=== PATIENT | male | born 1945 | race African-American/Black ===

== ENCOUNTER 2024-10-18 00:03 | Emergency (ER) | payer OTHER ==
[2024-10-18] MEDS ORDERED: FENTANYL CITR 100 MCG/2 ML ONE ×2 (01:25→05:06)
[2024-10-18] MEDS ORDERED: ONDANSETRON 4 MG/2 ML VIAL ONE ×2 (01:26→05:06)
[2024-10-18] MEDS ORDERED: NA CHLORIDE 0.9% 1,000 ML ONE (01:26)
[2024-10-18 01:41] LABS: Absolute Basophils 0.1 K/uL (0-0.5); Absolute Eosinophils 0.1 K/uL (0-0.5); Absolute Lymphocytes (CBC) 1.8 K/uL (0.7-4.9); Absolute Monocytes 0.7 K/uL (0.1-1.3); Basophils % 0.9 % (0-1.3); Eosinophils % 1.6 % (0-4.4); Hematocrit 29.7 % (39.6-49.0); Hemoglobin 9.2 g/dL (13.6-17.9); Lymphocytes % 27.1 % (15.3-44.8); MCH 22.3 pg (27.0-35.0); MCHC 31.1 g/dL (32.0-36.0); MCV 71.6 fL (80-100); MPV 7.2 fL (7.6-11.3); Neutrophils % 60.4 % (41.7-73.7); Nucleated Red Blood Cells % 0.1 % (0-0); Platelets 273 thou/uL (152-406); RBC Red Blood Cell Count 4.15 M/uL (4.33-5.43); Red Cell Distribution Width 20.1 % (12.1-15.2)
[2024-10-18 02:16] LABS: Albumin 2.6 g/dL (3.4-5.0); Albumin/Globulin Ratio 0.7 (1.1-1.8); Alkaline Phosphatase 95 U/L (45-117); Anion Gap 5.7 mEq/L (5.0-15.0); BUN Blood Urea Nitrogen 6 mg/dL (7-18); Bicarbonate 33 mEq/L (21-32); Bilirubin Total 0.3 mg/dL (0.2-1.0); Globulin 3.5 g/dL (2.3-3.5); Glomerular Filtration Rate 88 ml/min (=/>90); Glucose Level 140 mg/dL (74-106); Lipase 16 U/L (13-75); Potassium 2.7 mEq/L (3.5-5.1); Protein, Total 6.1 g/dL (6.4-8.2); Sodium Level 143 mEq/L (136-145)
[2024-10-18 02:17] LABS: ALT/SGPT < 14 U/L (16-61); AST/SGOT < 10 U/L (15-37); Bilirubin Direct < 0.2 mg/dL (0-0.2); Bilirubin Indirect, Calculated 0.1 mg/dL (0.2-0.8)
[2024-10-18 02:32] LABS: Specific Gravity 1.014 (1.005-1.030); Sqamous Epithelial <5 /HPF (None Seen); Urine Bacteria None Seen /HPF (<20); Urine Bilirubin NEGATIVE (Negative); Urine Blood Negative (Negative); Urine Clarity Turbid (Clear); Urine Color Colorless (Yellow); Urine Crystals Unidentified Few /HPF (None Seen); Urine Culture Reflex Order REFLEXED; Urine Glucose NEGATIVE (Negative); Urine Ketones 1+ (Negative); Urine Microscopic Reflex YN ORDER UMIC; Urine Mucus Slight /HPF (None Seen); Urine Nitrite NEGATIVE (Negative); Urine Protein NEGATIVE (Negative); Urine RBC <5 /HPF (None Seen); Urine Urobilinogen Normal (Normal); Urine WBC 20-50 /HPF (<5)
--- NOTE | 2024-10-18 03:26 | RAD REPORT ---
EXAMINATION: CT HEAD AND CERVICAL SPINE WITHOUT CONTRAST INDICATION: Male, 78 years old, HEADACHE; fall COMPARISON(S): CT chest performed concurrently TECHNIQUE: CT acquisition of the head without contrast. CT acquisition of the cervical spine without contrast. Coronal and sagittal reformats provided. This exam was performed according to departmental dose-optimization program which includes automated exposure control, adjustment of the m A and/or kV according to patient size, and/or use of iterative reconstruction technique. FINDINGS: SUPPORT DEVICES: None. HEAD: Brain: No evidence of intracranial hemorrhage, mass effect, or midline shift. Moderate cerebral white matter hypodensity with parenchymal volume loss most likely due to chronic microvascular ischemic changes. Left frontal and right parietal encephalomalacia. Hyperdense, partially calcified 1.3 cm ext ra-axial right frontal mass. CSF Spaces: Moderate symmetric enlargement of the ventricles and sulci. Osseous: No acute fracture. Soft tissue: No evidence of scalp or soft tissue injury. Other: The imaged facial bones are intact. Left lens replacement. Mild paranasal sinus disease is pre sent. CERVICAL SPINE: Morphology: Normal vertebral body heights. No identified fracture. Alignment: No traumatic listhesis. Straightening of normal cervical lordosis. Craniocervical Junction: Intact with degenerative change. Disc Levels: Mild to moderate multilevel spondylosis. Other: No acute finding of the neck soft tissues or imaged upper chest. IMPRESSION: 1. No acute intracranial abnormality. 2. No acute cervical osseous abnormality. 3. 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 Right frontal extra-axial 1.3 cm mass appears most consistent with a meningioma, consider further outpatient workup. Mild to moderate cervical spondylosis. Electronically signed by: Manpreet Vaughn MD 10/18/2024 03:21 AM [facility] Due to temporary technical issues with the PACS/[employer] reporting system, reports are being kaci d by the in-house radiologist without review as a courtesy to ensure prompt reporting the interpreting radiologist is fully responsible for the content of the report. Transcribed Date/Time: 10/18/2024 3:26 AM
--- NOTE | 2024-10-18 03:27 | RAD REPORT ---
EXAMINATION: CT CHEST ABDOMEN PELVIS WITH IV CONTRAST INDICATION: Male, 78 years old, FALL COMPARISON(S): Concurrent CT cervical spine TECHNIQUE: CT acquisition of the chest, abdomen, and pelvis per institutional trauma protocol followi ng the administration of IV contrast. Coronal and sagittal reformatted images provided. This exam was performed according to departmental dose-optimization program which includes automated exposure c ontrol, adjustment of the mA and/or kV according to patient size, and/or use of iterative reconstruction technique. FINDINGS: SUPPORT DEVICES: None. Beam hardening from arms down positioning results in decreased [id number] and limits interpretat ion. CHEST: Vasculature: No evidence of thoracic vascular injury. Heart and Pericardium: Normal heart size. No pericardial effusion. Mediastinum: No mediastinal hematoma. Lungs and Airways: No pulmonary contusion or laceration. Mild scarring/atelectasis. Pleural Space: No pneumothorax or hemothorax. ABDOMEN/PELVIS: Liver: No evidence of liver injury. Simple appearing cysts in the right lobe. Gallbladder/Biliary System: Postcholecystectomy changes with prominence of the bile ducts. Pancreas: No evidence of pancreatic injury. Dilated main duct up to 9 mm in diameter. Spleen: No evidence of splenic injury. Adrenals: Unremarkable. Kidneys and Ureters: No evidence of injury. Bilateral simple appearing renal cysts. Bladder: No gross bladder contusion or obvious rupture. Reproductive Organs: Prostatectomy. Vasculature: No evidence of injury. Atherosclerosis without aneurysm. Mesentery and Peritoneum: No hemoperitoneum or pneumoperitoneum. No mesenteric hematoma or evidence o f active hemorrhage. Bowel: Atraumatic appearance. THORACIC AND LUMBAR SPINE: Morphology: No acute fracture. Vertebral body heights are normal. Alignment: No traumatic listhesis. Disc Levels: Mild to moderate multilevel spondylosis. MUSCULOSKELETAL: Chest Wall: No evidence of acute rib or sternal fracture. Partially healed left 6th-7th and right 11t h-12th rib fractures. Small sclerotic lesion of the left 2nd rib. Pelvis: No acute fracture. Proximal Appendicular Bones and Joints: No acute fracture or joint malalignment. Degenerative changes of the shoulders. Muscles and Subcutaneous Tissues: No soft tissue injury. IMPRESSION: 1. No acute traumatic injury of the chest, abdomen, or pelvis. 2. No acute thoracic or lumbar osseous abnormality. 3. Attention to nonemergent incidental findings: Nonacute right and left rib fractures. Cholecystec carrie with significant enlargement of the bile ducts and main pancreatic duct; correlate with relative lab values and any available prior imaging, and consider nonemergent MRCP. Left 2nd rib scle rotic lesion, attention on subsequent exams or further workup recommended if patient has known or increased risk of osseous metastatic disease. Electronically signed by: Manpreet Vaughn MD 10/18/2024 03:20 AM [facility] Due to temporary technical issues with the PACS/[employer] reporting system, reports are being kaci d by the in-house radiologist without review as a courtesy to ensure prompt reporting the interpreting radiologist is fully responsible for the content of the report. Transcribed Date/Time: 10/18/2024 3:26 AM
[2024-10-18] MEDS ORDERED: CEFTRIAXONE 1000 MG/VIAL ONE (03:58)
[2024-10-18] MEDS ORDERED: POTASSIUM 25 MEQ EFFERV TAB ONE (03:58)
[2024-10-18] MEDS ORDERED: NS KCL 20MEQ 1,000 ML IV ONE (03:59)
[2024-10-18] MEDS ORDERED: KCL 20 MEQ/100 mL IVPB 100 ML IV ONE (03:59)
[2024-10-18] MEDS ORDERED: NA CHLORIDE 0.9% 500 ML ONE (04:00)
--- NOTE | 2024-10-18 04:02 | EDPHYS ---
Physician Documentation [facility] Name: Ramos Navarrete Age: 78 yrs Sex: Male : 1945 Arrival Date: 10/18/2024 Time: 00:03 Bed 6 Private MD: ED Physician Juan R Hawk HPI: 10/18 03:46 This 78 yrs old Black Male presents to ER via EMS with complaints of Back Pain. ghada 03:46 The patient presents with pain that is acute. The symptoms are located in the posterior ghada cervical area, thoracic area and lumbar area. Onset: The symptoms/episode began/occurred 4 day(s) ago. The pain does not radiate. Associated signs and symptoms: The patient has no apparent associated signs or symptoms. Modifying factors: The patient symptoms are alleviated by remaining still, rest, the patient symptoms are aggravated by any movement, standing, walking. Severity of symptoms: At their worst the symptoms were moderate, in the emergency department the symptoms are unchanged. The patient has not experienced similar symptoms in the past. Historical: - Allergies: 00:10 No Known Allergies; cp4 - Immunization history:: Adult Immunizations up to date. - Infectious Disease History:: Denies. - Social history:: Smoking status: Patient denies any tobacco usage or history of. - Family history:: not pertinent. ROS: 03:46 Constitutional: Negative for fever, chills, and weight loss, Eyes: Negative for injury, ghada pain, redness, and discharge, ENT: Negative for injury, pain, and discharge, Neck: Negative for injury, pain, and swelling, Cardiovascular: Negative for chest pain, palpitations, and edema, Respiratory: Negative for shortness of breath, cough, wheezing, and pleuritic chest pain, Abdomen/GI: Negative for abdominal pain, nausea, vomiting, diarrhea, and constipation, : Negative for injury, bleeding, discharge, and swelling, MS/Extremity: Negative for injury and deformity, Skin: Negative for injury, rash, and discoloration, Neuro: Negative for headache, weakness, numbness, tingling, and seizure, 03:46 Back: Positive for decreased range of motion, pain at rest, pain with movement, of the thoracic area and lumbar area, Exam: 03:46 Constitutional: This is a well developed, well nourished patient who is awake, alert, ghada and in no acute distress. Head/Face: Normocephalic, atraumatic. Eyes: Pupils equal round and reactive to light, extra-ocular motions intact. Lids and lashes normal. Conjunctiva and sclera are non-icteric and not injected. Cornea within normal limits. Periorbital areas with no swelling, redness, or edema. ENT: Nares patent. No nasal discharge, no septal abnormalities noted. Tympanic membranes are normal and external auditory canals are clear. Oropharynx with no redness, swelling, or masses, exudates, or evidence of obstruction, uvula midline. Mucous membranes moist. Neck: Trachea midline, no thyromegaly or masses palpated, and no cervical lymphadenopathy. Supple, full range of motion without nuchal rigidity, or vertebral point tenderness. No Meningismus. Chest/axilla: Normal chest wall appearance and motion. Nontender with no deformity. No lesions are appreciated. Cardiovascular: Regular rate and rhythm with a normal S1 and S2. No gallops, murmurs, or rubs. Normal PMI, no JVD. No pulse deficits. Respiratory: Lungs have equal breath sounds bilaterally, clear to auscultation and percussion. No rales, rhonchi or wheezes noted. No increased work of breathing, no retractions or nasal flaring. Abdomen/GI: Soft, non-tender, with normal bowel sounds. No distension or tympany. No guarding or rebound. No evidence of tenderness throughout. Male : Normal genitalia with no discharge or lesions. Skin: Warm, dry with normal turgor. Normal color with no rashes, no lesions, and no evidence of cellulitis. MS/ Extremity: Pulses equal, no cyanosis. Neurovascular intact. Full, normal range of motion., bilateral aka Neuro: Awake and alert, GCS 15, oriented to person, place, time, and situation. Cranial nerves II-XII grossly intact. Motor strength 5/5 in all extremities. Sensory grossly intact. Cerebellar exam normal. Normal gait. Psych: Awake, alert, with orientation to person, place and time. Behavior, mood, and affect are within normal limits. 03:46 Back: pain, that is mild, that is moderate, ROM is painful, normal spinal alignment noted, CVA tenderness, is absent, vertebral tenderness, is appreciated at thoracic spine, muscle spasm, is not present, Vital Signs: 00:05 BP 189 / 82; Pulse 61; Resp 18; Temp 98; Pulse Ox 100% ; Weight 65.77 kg; Height 5 ft. cp4 10 in. ; Pain 10/10; 01:21 BP 187 / 83; Pulse 55; Resp 18; Pulse Ox 100% ; cp4 02:20 BP 182 / 89; Pulse 62; Resp 18; Pulse Ox 99% ; cp4 03:18 BP 160 / 99; Pulse 60; Resp 18; Pulse Ox 99% ; cp4 04:00 BP 185 / 97; Pulse 67; Resp 17 S; Pulse Ox 99% on R/A; ha1 05:29 BP 196 / 93; Pulse 58; Resp 18; Pulse Ox 99% ; cp4 00:05 Body Mass Index 20.81 (65.77 kg, 177.8 cm) cp4 00:05 Pain Scale: Adult cp4 MDM: 00:11 Medical Screening Exam initiated ghada 03:50 Differential diagnosis: Fatigue Fracture Joint Injury Ligament Injury Obesity ghada Osteoporosis Pyelonephritis Renal Infarction ruptured disc, Scoliosis sickle cell crisis, vertebral fracture. Data reviewed: vital signs, nurses notes, lab test result(s), radiologic studies, CT scan. Consideration of Admission/Observation Escalation of care including admission/observation considered. I considered the following discharge prescriptions or medication management in the emergency department Medications were administered in the Emergency Department. See MAR. Independent interpretation of the following test(s) in the Emergency Department CT Scan: My interpretation is ct trauma. Test considered but Not performed: MRI: mri spinal survey. Historians other than the Patient: Spouse/Significant Other: somewhat informed. Care significantly affected by the following chronic conditions: Hypertension. Counseling: I had a detailed discussion with the patient and/or guardian regarding the historical points, exam findings, and any diagnostic results supporting the discharge/admit diagnosis, lab results, radiology results, the need to transfer to another facility, for higher level of care, [facility] does not immediately have the required specialist. 10/18 00:58 Order name: Basic Metabolic Panel; Complete Time: 03:31 ghada 10/18 00:58 Order name: CBC with Diff ghada 10/18 00:58 Order name: Type And Screen; Complete Time: 03:31 [facility] 10/18 00:58 Order name: Lipase; Complete Time: 03: [facility] 10/18 00:58 Order name: LFT's; Complete Time: 03:31 [facility] 10/18 00:58 Order name: Urinalysis w/ reflexes; Complete Time: 03:31 [facility] 10/18 02:47 Order name: Urine Culture [facility] 10/18 05:20 Order name: CBC Smear Scan [facility] 10/18 01:32 Order name: Head C Spine Mpr Wo Con [facility] 10/18 01:33 Order name: Chest Abdomen Pelvis W Cont [facility] 10/18 00:58 Order name: Labs collected and sent; Complete Time: 01:30 [facility] Administered Medications: 01:29 Drug: fentaNYL (PF) IVP 25 mcg IVP once Route: IVP; Site: left forearm; cp4 02:26 Follow up: Response: No adverse reaction; Pain is decreased cp4 01:29 Drug: Ondansetron IVP 4 mg IVP once; over 2 minutes Route: IVP; Site: left forearm; cp4 02:26 Follow up: Response: No adverse reaction cp4 01:29 Drug: NS 0.9% IV 1000 ml IV at 1000 ml once; to be given as a bolus over 60 minutes cp4 Route: IV; Rate: 1000 ml; Site: left forearm; 02:56 Follow up: Response: No adverse reaction; IV Status: Completed infusion cp4 01:29 Drug: fentaNYL (PF) IVP 25 mcg IVP once Route: IVP; Site: left forearm; cp4 02:26 Follow up: Response: No adverse reaction; Pain is decreased cp4 04:22 Drug: Rocephin IV 1 grams IV at per protocol once; Given slow IV push per pharmacy ha1 instructions Route: IV; Rate: per protocol; Site: left forearm; 04:30 Follow up: Response: No adverse reaction; IV Status: Completed infusion cp4 04:25 Drug: Potassium PO Effervescent Tablet 50 mEq PO once; dissolve in 4 ounces of water or ha1 juice Route: PO; 05:33 Follow up: Response: No adverse reaction cp4 04:25 Drug: NS 0.9% with KCl IV 20 mEq/L 1000 ml IV at 125 ml/hr continuous Route: IV; Rate: ha1 125 ml/hr; Site: right forearm; 05:33 Follow up: Response: No adverse reaction; IV Status: Infusion continued upon transfer cp4 04:26 Drug: Potassium Chloride IV 20 mEq IV at per protocol once; administer over 1-2 hours ha1 Route: IV; Rate: per protocol; Site: left forearm; 05:33 Follow up: IV Status: Infusion continued upon transfer cp4 05:10 Drug: Ondansetron IVP 4 mg IVP once; over 2 minutes Route: IVP; Site: left forearm; ha1 05:33 Follow up: Response: No adverse reaction cp4 05:14 Drug: fentaNYL (PF) IVP 25 mcg IVP once Route: IVP; Site: left forearm; ha1 05:33 Follow up: Response: No adverse reaction; Pain is decreased cp4 05:14 Drug: fentaNYL (PF) IVP 25 mcg IVP once Route: IVP; Site: left forearm; ha1 05:33 Follow up: Response: No adverse reaction; Pain is decreased cp4 05:18 Drug: Diazepam PO 5 mg PO once Route: PO; ha1 05:32 Follow up: Response: No adverse reaction cp4 Disposition Summary: 10/18/24 04:01 Transfer Ordered Notes: Transfer Location: [facility] ghada Reason: Higher level of care ghada Condition: Fair ghada Problem: new ghada Symptoms: have improved ghada Accepting Physician: to [facility](10/18/24 05:34) cp4 Diagnosis - Fall on same level, unspecified - non ambulatory ghada - Low back pain ghada - Spondylolysis, cervical region ghada - Spondylolysis, lumbar region ghada - Hypokalemia - 2.7 ghada - Abnormal findings on diagnostic imaging of other specified body structures - 1.3 cm ghada mass right frontal extra - axial - Multiple fractures of ribs - subacute ghada - UTI/ Urinary tract infection, site not specified ghada - Iron deficiency anemia, unspecified ghada Forms: - Medication Reconciliation Form ghada - SBAR form ghada Signatures: Dispatcher [employer] EDJuan R Connor MD MD cha Ayala, Heidy RN RN ha1 Tyesha Mccarthy cp4 Corrections: (The following items were deleted from the chart) 00:59 00:59 BASIC METABOLIC PANEL+C.LAB.BRZ ordered. EDMS EDMS 00:59 00:59 CBC+H.LAB.BRZ ordered. EDMS EDMS 00:59 00:59 TYPE AND SCREEN+BB.LAB.BRZ ordered. EDMS EDMS 00:59 00:59 LIPASE+C.LAB.BRZ ordered. EDMS EDMS 00:59 00:59 HEPATIC FUNCTION+C.LAB.BRZ ordered. EDMS EDMS 00:59 00:59 Urinalysis+U.LAB.BRZ ordered. EDMS EDMS 01:32 00:59 Head C Spine CAP W Con+CT.RAD.BRZ ordered. EDMS EDMS 04:02 04:01 to [facility] 04:05 04:02 to [facility] 04:12 04:12 PHOSPHORUS+C.LAB.BRZ ordered. EDMS EDMS 05:34 04:05 to [facility] cp4
--- NOTE | 2024-10-18 04:02 | ER ---
Nurse's Notes [facility] Name: Ramos Navarrete Age: 78 yrs Sex: Male : 1945 Arrival Date: 10/18/2024 Time: 00:03 Bed 6 Private MD: Diagnosis: Fall on same level, unspecified-non ambulatory;Low back pain;Spondylolysis, cervical region;Spondylolysis, lumbar region;Hypokalemia-2.7;Abnormal findings on diagnostic imaging of other specified body structures-1.3 cm mass right frontal extra - axial;Multiple fractures of ribs-subacute;UTI/ Urinary tract infection, site not specified;Iron deficiency anemia, unspecified Presentation: 10/18 00:05 Chief complaint: EMS states: reports pain between shoulders from a fall on Saturday. Was cp4 seen at [facility] for the fall. Wanted to come here because they did nothing for him. Coronavirus screen: Client denies travel out of the [place] in the last 14 days. At this time, the client does not indicate any symptoms associated with coronavirus-19. Ebola Screen: Patient negative for fever greater than or equal to 101.5 degrees Fahrenheit, and additional compatible Ebola Virus Disease symptoms Patient denies exposure to infectious person. Patient denies travel to an Ebola-affected area in the 21 days before illness onset. No symptoms or risks identified at this time. Initial Sepsis Screen: Does the patient meet any 2 criteria? No. Patient's initial sepsis screen is negative. Does the patient have a suspected source of infection? No. Patient's initial sepsis screen is negative. Risk Assessment: Do you want to hurt yourself or someone else? Patient reports no desire to harm self or others. Onset of symptoms was October 16, 2024. 00:05 Method Of Arrival: [facility]: [facility] cp4 00:05 Acuity: LINN 3 cp4 Triage Assessment: 00:10 General: Appears in no apparent distress. comfortable, Behavior is calm, cooperative, cp4 appropriate for age. Pain: Complains of pain in back. 00:12 EENT: No signs and/or symptoms were reported regarding the EENT system. Neuro: Level of cp4 Consciousness is awake, alert, obeys commands, Oriented to person, place, time, situation. Cardiovascular: Patient's skin is warm and dry. Respiratory: Airway is patent Respiratory effort is even, unlabored. GI: No signs and/or symptoms were reported involving the gastrointestinal system. : No signs and/or symptoms were reported regarding the genitourinary system. Derm: No signs and/or symptoms reported regarding the dermatologic system. Musculoskeletal: Reports pain in back. Historical: - Allergies: 00:10 No Known Allergies; cp4 - Immunization history:: Adult Immunizations up to date. - Infectious Disease History:: Denies. - Social history:: Smoking status: Patient denies any tobacco usage or history of. - Family history:: not pertinent. Screenin:13 [facility] ED Fall Risk Assessment (Adult) History of falling in the last 3 months, cp4 including since admission Yes- fall prone (multiple falls) (3 pts) Confusion or Disorientation No (0 pts) Intoxicated or Sedated No (0 pts) Impaired Gait No (0 pts) Mobility Assist Device Used No (0 pt) Altered Elimination No (0 pt) Score/Fall Risk Level 3 or more points = High Risk Oriented to surroundings, Maintained a safe environment, Assessed \T\ reinforced patient's understanding of fall precautions, Hourly rounding (assess needs \T\ fall precautionary measures) done. Abuse screen: Denies threats or abuse. Nutritional screening: No deficits noted. Tuberculosis screening: No symptoms or risk factors identified. Assessment: 00:13 Reassessment: No changes from previously documented assessment. cp4 02:21 Reassessment: Patient appears in no apparent distress at this time. Patient and/or cp4 family updated on plan of care and expected duration. Pain level reassessed. Patient is alert, oriented x 3, equal unlabored respirations, skin warm/dry/pink. 03:19 Reassessment: No changes from previously documented assessment. Patient and/or family cp4 updated on plan of care and expected duration. Pain level reassessed. Patient is alert, oriented x 3, equal unlabored respirations, skin warm/dry/pink. Vital Signs: 00:05 BP 189 / 82; Pulse 61; Resp 18; Temp 98; Pulse Ox 100% ; Weight 65.77 kg; Height 5 ft. cp4 10 in. ; Pain 10/10; 01:21 BP 187 / 83; Pulse 55; Resp 18; Pulse Ox 100% ; cp4 02:20 BP 182 / 89; Pulse 62; Resp 18; Pulse Ox 99% ; cp4 03:18 BP 160 / 99; Pulse 60; Resp 18; Pulse Ox 99% ; cp4 04:00 BP 185 / 97; Pulse 67; Resp 17 S; Pulse Ox 99% on R/A; ha1 05:29 BP 196 / 93; Pulse 58; Resp 18; Pulse Ox 99% ; cp4 00:05 Body Mass Index 20.81 (65.77 kg, 177.8 cm) cp4 00:05 Pain Scale: Adult cp4 ED Course: 00:04 Patient arrived in ED. cp4 00:10 Triage completed. cp4 00:11 Juan R Hawk MD is Attending Physician. ghada 00:12 Arm band placed on right wrist. Patient placed in an exam room, on a stretcher. cp4 00:13 Bed in low position. Call light in reach. Side rails up X2. cp4 00:13 No provider procedures requiring assistance completed. cp4 01:12 Sophia Austin, RN is Primary Nurse. ha1 02:47 Head C Spine Mpr Wo Con In Process Unspecified. EDMS 02:51 Chest Abdomen Pelvis W Cont In Process Unspecified. EDMS 05:30 Provided Education on: transfer. cp4 05:30 Patient transferred, IV remains in place. cp4 Administered Medications: 01:29 Drug: fentaNYL (PF) IVP 25 mcg IVP once Route: IVP; Site: left forearm; cp4 02:26 Follow up: Response: No adverse reaction; Pain is decreased cp4 01:29 Drug: Ondansetron IVP 4 mg IVP once; over 2 minutes Route: IVP; Site: left forearm; cp4 02:26 Follow up: Response: No adverse reaction cp4 01:29 Drug: NS 0.9% IV 1000 ml IV at 1000 ml once; to be given as a bolus over 60 minutes cp4 Route: IV; Rate: 1000 ml; Site: left forearm; 02:56 Follow up: Response: No adverse reaction; IV Status: Completed infusion cp4 01:29 Drug: fentaNYL (PF) IVP 25 mcg IVP once Route: IVP; Site: left forearm; cp4 02:26 Follow up: Response: No adverse reaction; Pain is decreased cp4 04:22 Drug: Rocephin IV 1 grams IV at per protocol once; Given slow IV push per pharmacy ha1 instructions Route: IV; Rate: per protocol; Site: left forearm; 04:30 Follow up: Response: No adverse reaction; IV Status: Completed infusion cp4 04:25 Drug: Potassium PO Effervescent Tablet 50 mEq PO once; dissolve in 4 ounces of water or ha1 juice Route: PO; 05:33 Follow up: Response: No adverse reaction cp4 04:25 Drug: NS 0.9% with KCl IV 20 mEq/L 1000 ml IV at 125 ml/hr continuous Route: IV; Rate: ha1 125 ml/hr; Site: right forearm; 05:33 Follow up: Response: No adverse reaction; IV Status: Infusion continued upon transfer cp4 04:26 Drug: Potassium Chloride IV 20 mEq IV at per protocol once; administer over 1-2 hours ha1 Route: IV; Rate: per protocol; Site: left forearm; 05:33 Follow up: IV Status: Infusion continued upon transfer cp4 05:10 Drug: Ondansetron IVP 4 mg IVP once; over 2 minutes Route: IVP; Site: left forearm; ha1 05:33 Follow up: Response: No adverse reaction cp4 05:14 Drug: fentaNYL (PF) IVP 25 mcg IVP once Route: IVP; Site: left forearm; ha1 05:33 Follow up: Response: No adverse reaction; Pain is decreased cp4 05:14 Drug: fentaNYL (PF) IVP 25 mcg IVP once Route: IVP; Site: left forearm; ha1 05:33 Follow up: Response: No adverse reaction; Pain is decreased cp4 05:18 Drug: Diazepam PO 5 mg PO once Route: PO; ha1 05:32 Follow up: Response: No adverse reaction cp4 Medication: 00:13 VIS not applicable for this client. cp4 Outcome: 04:01 ER care complete, transfer ordered by MD. urrutia 05:30 Transferred by ground EMS to [facility], Transfer form completed. X-rays sent cp4 w/ patient. 05:30 Condition: stable 05:30 Instructed on the need for transfer, 05:34 Patient left the ED. cp4 Signatures: Dispatcher [employer] EDJuan R Connor MD MD cha Ayala, Heidy, RN RN 1 Tyesha Mccarthy cp4
[2024-10-18] MEDS ORDERED: DIAZEPAM 5 MG TABLET ONE (05:18)
[2024-10-18 05:19] LABS: Anisocytosis 1+; Blood Morphology Comment NOTED (NOT SEEN); Hypochromasia 1+; Platelet Estimate ADEQ; Poikilocytosis SLIGHT; White Blood Cell Scan OK (OK)
[2024-10-18 05:20] LABS: Ovalocytes SLIGHT
[2024-10-18 05:51] VITALS: TEMP 98
[2024-10-18 05:53] VITALS: O2SAT 99
[2024-10-18 05:57] VITALS: BP 196/93
== END 2024-10-18 05:34 | disposition short-term general hospital (02) ==
LOC: ER 00:03
DX: M47.896 Other spondylosis, lumbar region (principal); M47.892 Other spondylosis, cervical region; E87.6 Hypokalemia; S22.43XA Multiple fractures of ribs, bilateral, initial encounter for closed fracture; R93.89 Abnormal findings on diagnostic imaging of other specified body structures; N39.0 Urinary tract infection, site not specified; D50.9 Iron deficiency anemia, unspecified; W18.30XA Fall on same level, unspecified, initial encounter
CPT/HCPCS: 96365; 96361; 87088; 85025; 81001; 87086; 80048; 36415; 86900; 86850; 86901; 80076; 83690; 70450; 72125; 71260; 74177; 96375; 99285; Q9967 ×2; J3480 ×2; J3010 ×2; J2405 ×2; J7040; J7030; J0696